=== PATIENT | male | born 1985 | race Caucasian/White ===

== ENCOUNTER → 2018-04-11 | Outpatient (CLI) | payer MEDICARE | END | disposition home or self-care (01) | LOC: CFH 13:07 | PROVIDERS: ATTEND Nurse Practitioner Primary Care | DX: R19.02 Left upper quadrant abdominal swelling, mass and lump (principal) | CPT/HCPCS: 76705 ==

== ENCOUNTER → 2020-02-29 | Outpatient (CLI) | payer MEDICARE | END | disposition home or self-care (01) | LOC: RAD 16:30 | PROVIDERS: ATTEND Family Medicine | DX: R10.84 Generalized abdominal pain (principal) | CPT/HCPCS: 74176 ==